=== PATIENT | male | born 1975 | race African-American/Black ===

== ENCOUNTER 2017-03-26 11:44 | Emergency (ER) | payer OTHER ==
--- NOTE | 2017-03-26 11:54 | PDOC ---
History of Present Illness - General Chief Complaint: RX Refill Stated Complaint: RX REFILL Time Seen by Provider: 03/26/17 11:48 History Source: Patient Exam Limitations: No Limitations - History of Present Illness Initial Comments: 03/26/17 11:48 41 year old male with history of bipolar disorder presents with requesting medication refill. Has no complaints. Feels well. Denies any psychiatric or medical complaints at this times. Take fluoxetine and risperdal. He is attempting to get an appointment with his doctors for more refills. Past History - Past Medical History Allergies/Adverse Reactions: Allergies Allergy/AdvReac Type Severity Reaction Status Date / Time No Known Allergies Allergy Verified 03/26/17 11:45 Home Medications: Ambulatory Orders Fluoxetine HCl 20 mg PO DAILY #30 capsule 03/26/17 Risperidone [Risperdal] 1 mg PO DAILY #30 tablet 03/26/17 Review of Systems - Review of Systems Able to Perform ROS?: Yes Comments:: 03/26/17 11:49 GENERAL/CONSTITUTIONAL: No fever, weakness. HEAD, EYES, EARS, NOSE AND THROAT: No change in vision. No ear pain or discharge. No sore throat. CARDIOVASCULAR: No chest pain or shortness of breath. RESPIRATORY: No cough, wheezing, or hemoptysis. GASTROINTESTINAL: No abdominal pain, nausea, vomiting, diarrhea, or decreased PO intolerance. GENITOURINARY: No dysuria, frequency, or change in urination. MUSCULOSKELETAL: No joint or muscle swelling or pain. No neck or back pain. SKIN: No rash NEUROLOGIC: No headache, vertigo, loss of consciousness, or change in strength/ sensation. ENDOCRINE: No increased thirst. No abnormal weight change. HEMATOLOGIC/LYMPHATIC: No anemia, easy bleeding, or history of blood clots. ALLERGIC/IMMUNOLOGIC: No hives or skin allergy. *Physical Exam - Physical Exam Comments: 03/26/17 11:49 GENERAL: Awake, alert, and fully oriented, in no acute distress. HEAD: No signs of trauma EYES: PERRLA, EOMI, sclera anicteric, conjunctiva clear ENT: Auricles normal inspection, hearing grossly normal, nares patent, oropharynx clear without exudates. NECK: Normal ROM, supple EXTREMITIES: Normal range of motion, no edema. No clubbing or cyanosis. No cords, erythema, or tenderness NEUROLOGICAL: Cranial nerves II through XII grossly intact. Normal speech, normal gait SKIN: Warm, Dry, normal turgor, no rashes or lesions noted. Medical Decision Making - Medical Decision Making 03/26/17 11:49 Will refill medications. Recommended patient to schedule an appointment for follow up Follow up with PMD I discussed the physical exam findings, ancillary test results and final diagnoses with the patient. I answered all of the patient's questions. The patient was satisfied with the care received and felt comfortable with the discharge plan and treatment plan. The patient will call their primary care physician within 24 hours to arrange follow-up and will return to the Emergency Department with any new, persistant or worsening symptoms. 03/26/17 11:54 I had called [facility] and spoke to the pharmacist. Patient takes 20 mg fluoxetine daily and 1 mg risperdal qhs. *DC/Admit/Observation/Transfer Diagnosis at time of Disposition: Medication refill - Discharge Dispostion Disposition: HOME Condition at time of disposition: Good Admit: No - Prescriptions Prescriptions: Fluoxetine HCl 20 mg PO DAILY #30 capsule Risperidone [Risperdal] 1 mg PO DAILY #30 tablet - Referrals - Patient Instructions Additional Instructions: Your medications have been refilled. Please make an appointment with your doctor. - Post Discharge Activity
[2017-03-26 12:01] VITALS: BP 149/98; PULSE 94; TEMP 98.4; BMI 28.3
== END 2017-03-26 12:10 | disposition home or self-care (01) ==
LOC: FER 11:44
DX: Z76.0 Encounter for issue of repeat prescription (principal); F31.9 Bipolar disorder, unspecified
CPT/HCPCS: 99281-25